=== PATIENT | male | born 1950 | race Caucasian/White ===

== ENCOUNTER 2022-08-02 13:45 | Outpatient (CLI) | payer MEDICARE, BC | END 2022-08-02 13:46 | disposition home or self-care (01) | LOC: CSHMRI 13:45 | PROVIDERS: ATTEND Family Medicine | DX: M47.26 Other spondylosis with radiculopathy, lumbar region (principal); M48.061 Spinal stenosis, lumbar region without neurogenic claudication | CPT/HCPCS: 72148 ==

== ENCOUNTER 2024-07-09 06:18 | Day surgery (SDC) | payer MEDICARE, OTHER ==
[2024-07-09] MEDS ORDERED: Heparin 10,000 UNITS/ 10 ML VIAL ONE (06:27)
[2024-07-09] MEDS ORDERED: Lidocaine 1% (PF) 30 ML VIAL ONE (06:29)
[2024-07-09] MEDS ORDERED: Nitroglycerin 50 MG/250 ML BOT 250 ML ONE (06:29)
[2024-07-09 07:03] VITALS: BP 125/69; TEMP 98.7
[2024-07-09 07:16] LABS: #Basophils 0.05 10x3/uL (0.0-0.2); #Eosinphils 0.38 10x3/uL (0.0-0.5); #Monocytes 0.94 10x3/uL (0.0-1.1); #Neutrophils 7.24 10x3/uL (1.5-8.4); %Basophils 0.4 % (0.0-2.0); %Eosinophils 3.3 % (0.0-6.0); %Lymphocytes 25.9 % (18.0-47.0); Hematocrit 39.8 % (38.8-50.0); Hemoglobin 13.6 g/dL (13.5-17.5); Mean Corpuscular HGB CONC 34.2 g/dL (32.0-36.0); Mean Corpuscular Hemoglobin 32.6 pg (27.0-33.0); Mean Corpuscular Volume 95.4 fL (81.2-95.1); Platelet Count 218 10x3/uL (150-450); Red Blood Cell (RBC) Count 4.17 10x6/uL (4.32-5.72); White Blood Cell (WBC) Count 11.7 10x3/uL (3.5-10.5)
[2024-07-09 07:23] LABS: Anion Gap 15 mmol/L (10-20); BUN (Urea Nitrogen) 21 mg/dL (8.4-25.7); Calc. Creatinine Clearance 145 mL/min (70-130); Calcium 9.2 mg/dL (7.8-10.44); Carbon Dioxide 21 mmol/L (23-31); Chloride 108 mmol/L (98-107); Estimated GFR 93; Glucose 137 mg/dL (83-110); Sodium 140 mmol/L (136-145)
[2024-07-09 07:30] LABS: PTT 28.5 sec (22.0-33.0); Prothrombin Time 11.1 sec (9.5-12.1)
[2024-07-09] MEDS ORDERED: Midazolam HCl 2 mg/2 ml Vial ONE (07:39)
[2024-07-09] MEDS ORDERED: fentaNYL 50 mcg/mL 1 mL Vial ONE (07:39)
== END 2024-07-09 18:10 | disposition home or self-care (01) ==
LOC: CSHSDC 06:18
PROVIDERS: ATTEND Specialist
PROC: 027 Heart and Great Vessels, Dilation (ICD-10-PCS; principal; 2024-07-09)
DX: I25.10 Atherosclerotic heart disease of native coronary artery without angina pectoris (principal)
CPT/HCPCS: 71045; 80048; 85025; 85347 ×2; 85610; 85730; 92978; 93005; 93454; C1725; C1753; C1760; C1769; C1874 ×2; C1887; C9607; J1644; J2001; J2250; J3010; Q9967; 92943; 93010; 99152; 99153